=== PATIENT | male | born 1940 | race Caucasian/White ===

== ENCOUNTER 2021-12-23 11:32 | Emergency (ER) | payer MEDICARE, OTHER ==
[~2021-12-23] VITALS: Ht 170.2 cm; Wt 108.9 kg
[~2021-12-23 11:32] MED LIST: ACET325 PO; AMLO5 PO; AMOCLA875 PO; ASPI325 PO; ASPI325EC; Augmentin 500-1 EACH PO; CALCA500CH PO; CALCAVITDA PO; CALCIUM 500 +1 EAC3 PO; CHLO25B PO; CHOL10002; CIPRO500 MG PO; COLACE CLEAR50 MG PO; DOCU100 PO; Docusate Sodiu1 EACH PO; FISH1000 PO; Flagyl500 MG PO; GLUCOSAMINE &1 EACH PO; Grape Seed50 M1; Grape Seed50 M1 PO; K-Dur20 MEQ PO; KLOR CON PO; Miralax17 GM PO; NIAC250ER PO; NIAC500ER PO; OXYC5; OXYC5 PO; PANT40 PO; Prednisone20 MG PO; Prinivil10 MG PO; Questran4 GM PO; Robaxin500 MG PO; SILD50TA; STOOL SOFTENER50 MG PO; Saw Palmetto80 MG; Senna Plus Tab1 EACH; Senna8.6 MG PO; Tasprin325 MG; Vitamin B Comple1 EA PO; WARF4 PO
[2021-12-23 12:32] LABS: BASOPHILS ABSOLUTE AUTO 0.09 K/mm3 (0.00-0.23); BASOPHILS PERCENT AUTO 1 % (0-2); EOSINOPHILS ABSOLUTE AUTO 0.22 K/mm3 (0.00-0.68); EOSINOPHILS PERCENT AUTO 2 % (0-6); Hematocrit 44.9 % (37.0-53.0); Hemoglobin 14.9 g/dL (13.5-17.5); IMMATURE GRAN ABSOLUTE AUTO 0.03 K/mm3 (0.00-0.10); IMMATURE GRAN PERCENT AUTO 0 % (0-1); LYMPHOCYTES ABSOLUTE AUTO 1.55 K/mm3 (0.84-5.20); LYMPHOCYTES PERCENT AUTO 16 % (21-46); MONOCYTES ABSOLUTE AUTO 0.89 K/mm3 (0.16-1.47); MONOCYTES PERCENT AUTO 9 % (4-13); Mean Corpuscular HGB 29.6 pg (26.0-34.0); Mean Corpuscular HGB Conc 33.2 g/dL (31.5-36.5); Mean Corpuscular Volume 89 fL (80-100); Mean Platelet Volume 10.5 fL (9.1-12.4); NEUTROPHILS ABSOLUTE AUTO 7.13 K/mm3 (1.96-9.15); NEUTROPHILS PERCENT AUTO 72 % (41-73); Platelet Count 198 K/mm3 (150-400); RDW Coefficient Variation 13.1 % (11.7-14.2); RDW Standard Deviation 42.7 fL (35.1-46.3); Red Blood Cell Count 5.03 M/mm3 (4.30-5.90); White Blood Cell Count 9.91 K/mm3 (4.00-11.30)
[2021-12-23 13:09] LABS: Alanine Aminotransfer (ALT/SGP 31 U/L (12-78); Albumin, Blood 3.5 g/dL (3.4-5.0); Albumin/Globulin Ratio 0.8 (0.8-1.8); Alk Phos 74 U/L (50-136); Anion Gap 6 mmol/L (6-16); Aspartate Aminotrans (AST/SGOT 42 U/L (12-37); Bilirubin, Total 0.9 mg/dL (0.1-1.0); Blood Urea Nitrogen 12 mg/dL (8-24); Bun/Creatinine Ratio 10.9 (12.0-20.0); CO2, Blood 28 mmol/L (21-32); Calcium, Blood 9.4 mg/dL (8.5-10.1); Chloride, Blood 104 mmol/L (98-108); Globulin, Blood 4.3 g/dL (2.2-4.0); Glomerular Filtration Rate >60 (60-); Glucose, Blood 115 mg/dL (70-99); Potassium, Blood 3.7 mmol/L (3.5-5.5); Sodium, Blood 138 mmol/L (136-145); Total Protein, Blood 7.8 g/dL (6.4-8.2)
[2021-12-23] MEDS ORDERED: ZOLOFT50 MG PO (16:07)
[2021-12-23] MEDS ORDERED: ATORVASTATIN CA20 MG PO (16:07)
== END 2021-12-23 18:43 | disposition home or self-care (01) ==
LOC: ER 11:32
PROVIDERS: Physician Assistant
DX: R51.9 Headache, unspecified (principal); Z79.899 Other long term (current) drug therapy
CPT/HCPCS: 36415; 70450; 80053; 85025; 93971; 99284-25

== ENCOUNTER → 2022-12-17 | Outpatient (CLI) | payer MEDICARE, OTHER ==
[~2022-12-17] MED LIST changes: +AMLO10 PO; +ATORVASTATIN CA20 MG PO; +AZIT250 PO; +Acetaminophen325 M1 PO; +CARBLEV25 PO; +Flonase 0.05% N16 GM; +HYDCHL25 PO; +Inderal40 MG PO; +POTA10T PO; +THERA-D2000 UNIT PO; +ZOLOFT50 MG PO
[2022-12-17 10:58] LABS: Bun/Creatinine Ratio 13.6 (12.0-20.0); Calcium, Blood 9.4 mg/dL (8.5-10.1); Creatinine, Blood 0.95 mg/dL (0.60-1.20); Magnesium, Blood 2.1 mg/dL (1.6-2.4); Potassium, Blood 3.3 mmol/L (3.5-5.5)
== END | disposition home or self-care (01) ==
LOC: LAB RH 10:29 → EDSTATUS 15:18
PROVIDERS: Physician Assistant
DX: E61.2 Magnesium deficiency (principal); R79.89 Other specified abnormal findings of blood chemistry
CPT/HCPCS: 80048; 83735

== ENCOUNTER → 2023-10-26 | Outpatient (CLI) | payer MEDICARE, OTHER ==
[2023-10-26 15:43] LABS: Stool Occult Bld Immuno 1 Positive (NEGATIVE)
== END | disposition home or self-care (01) ==
LOC: LAB SHORT 09:00 → LAB 09:00
PROVIDERS: Physician Assistant
DX: D50.9 Iron deficiency anemia, unspecified (principal)
CPT/HCPCS: G0328

== ENCOUNTER 2024-03-27 07:07 | Day surgery (SDC) | payer MEDICARE, OTHER ==
[~2024-03-27] VITALS: Ht 170.2 cm; Wt 97.2 kg
[~2024-03-27 07:07] MED LIST changes: +ASPI81CH PO; +FERROUS GLUCON324 M2 PO; +GABA100 PO; +Lactated Ringer's 1,000 ML IV SCH; +SINEMET 25-1001 EAC1 PO
[2024-03-27 09:01] VITALS: BP 144/75
--- NOTE | 2024-03-27 09:09 | NUR ---
PATIENT STATES HE WILL USE [facility] FOR RIDE HOME. DRESSED INDEPENDANTLY WITH STAND BY ASSIST ONLY. USED PERSONAL W/C TO TRANSPORT TO DAY SURGERY.
--- NOTE | 2024-03-27 09:10 | NUR ---
PATIENT IS A POOR HISTORIAN.
[2024-03-27] MEDS ORDERED: propofoL 60 ML IV ONE (09:17)
--- NOTE | 2024-03-27 09:26 | NUR ---
03/27/24 0926 Gui Jimenez History, Chart, Medications and Allergies reviewed before start of procedure.MONITOR INTACT WITH CONTINUOUS PULSE OXIMETRY, CONTINUOUS END TITAL CO2, AND INTERMITTENT BLOOD PRESSURE.3-LEAD EKG REVIEWED WITH PHYSICIAN PRIOR TO START OF PROCEDURE.O2 VIA POM INTACT THROUGHOUT SEDATION/PROCEDURE.See Anesthesia record.
[2024-03-27 09:57] VITALS: BP 114/71
[2024-03-27 10:15] VITALS: BP 153/80
[2024-03-27 10:35] VITALS: BP 160/79
--- NOTE | 2024-03-27 10:51 | NUR ---
Discharge instructions reviewed with patient. Patient verbalizes understanding. Copy given to patient to take home. PT ASSIST W/ DRESSING AND TO W/ 2 RN ASSIST. AWAITING [facility]. DENIES PAIN, N/V.
== END 2024-03-27 11:10 | disposition home or self-care (01) ==
LOC: ORSCMMR 07:07 → ORD 09:00 → ORSCMMR 09:00
PROVIDERS: Internal Medicine Gastroenterology
PROC: 0DBN8ZX Excision of Sigmoid Colon, Via Natural or Artificial Opening Endoscopic, Diagnostic (ICD-10-PCS; principal; 2024-03-27 09:00)
PROC: 0DBP8ZX Excision of Rectum, Via Natural or Artificial Opening Endoscopic, Diagnostic (ICD-10-PCS; principal; 2024-03-27 09:00)
PROC: 0DBL8ZX Excision of Transverse Colon, Via Natural or Artificial Opening Endoscopic, Diagnostic (ICD-10-PCS; principal; 2024-03-27 09:00)
DX: K62.5 Hemorrhage of anus and rectum (principal); D12.5 Benign neoplasm of sigmoid colon; D12.8 Benign neoplasm of rectum; K63.5 Polyp of colon; K57.30 Diverticulosis of large intestine without perforation or abscess without bleeding; I10 Essential (primary) hypertension; G47.33 Obstructive sleep apnea (adult) (pediatric); G20.A1 Parkinson's disease without dyskinesia, without mention of fluctuations; Z79.899 Other long term (current) drug therapy; Z79.82 Long term (current) use of aspirin
CPT/HCPCS: 88305; J2704; J7120